=== PATIENT | male | born 1980 | race Caucasian/White ===

== ENCOUNTER 2020-06-01 17:57 | Emergency (ER) | payer BC, OTHER ==
[~2020-06-01] VITALS: Ht 193 cm; Wt 102.1 kg
[~2020-06-01 17:57] MED LIST: PROXICAM PO; QSYMIA
[2020-06-01] MEDS ORDERED: KETOROLAC TROMETHAMINE 60 MG/2 ML VIAL IM ONE (18:30)
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
[2020-06-01] MEDS ORDERED: KETOROLAC TROMETHAMINE 60 MG/2 ML VIAL ONE (18:39)
[2020-06-01] MEDS ORDERED: CYCLOBENZAPRINE10 MG PO (18:57)
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
--- NOTE | 2020-06-01 19:37 | Diagnostic Imaging Report ---
PELVIS 1-2 VIEW - HOPD - 1 view HISTORY: Pain COMPARISON: None available. FINDINGS: Bones: No acute displaced fracture. Osseous alignment is within normal limits. Joints: The joint spaces are well-maintained. Soft tissues: The soft tissues appear unremarkable. IMPRESSION: No acute radiographic abnormality. Signed by: Dr. Jama Lockwood MD on 06/01/2020 7:33 PM
--- NOTE | 2020-06-01 19:39 | Diagnostic Imaging Report ---
Lumbar Spine Radiographs: 3 views HISTORY: Pain COMPARISON: None available. DISCUSSION: Some of the osseous structures are partially obscured by stool and bowel gas. There are five non-rib bearing lumbar vertebral bodies. The alignment of the spine is within normal limits. No displaced fracture or compression deformity is identified. Vertebral body heights are maintained. Sacralization of L5. IMPRESSION: No acute radiographic abnormality. Signed by: Dr. Jama Lockwood MD on 06/01/2020 7:36 PM
--- NOTE | 2020-06-01 19:40 | Diagnostic Imaging Report ---
KNEE 3VW RT - HOPD - 3 views HISTORY: Pain COMPARISON: None available. FINDINGS: Bones: No acute displaced fracture. Osseous alignment is within normal limits. Joints: The joint spaces are well-maintained. Soft tissues: The soft tissues appear unremarkable. IMPRESSION: No acute radiographic abnormality. Signed by: Dr. Jama Lokcwood MD on 06/01/2020 7:37 PM
--- NOTE | 2020-06-01 19:41 | Diagnostic Imaging Report ---
KNEE 3VW LT - HOPD - 3 views HISTORY: Pain COMPARISON: None available. FINDINGS: Bones: No acute displaced fracture. Osseous alignment is within normal limits. Joints: The joint spaces are well-maintained. Soft tissues: The soft tissues appear unremarkable. IMPRESSION: No acute radiographic abnormality. Signed by: Dr. Jama Lockwood MD on 06/01/2020 7:38 PM
--- NOTE | 2020-06-01 19:43 | Diagnostic Imaging Report ---
FOOT 3 VIEW RT - HOPD - 3 views HISTORY: Pain COMPARISON: None available. FINDINGS: Bones: No acute displaced fracture. Osseous alignment is within normal limits. Joints: The joint spaces are well-maintained. Soft tissues: The soft tissues appear unremarkable. IMPRESSION: No acute radiographic abnormality. Signed by: Dr. Jama Lockwood MD on 06/01/2020 7:40 PM
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
== END 2020-06-01 19:56 | disposition home or self-care (01) ==
LOC: FSED 18:10
DX: M54.5 Low back pain (principal); M25.562 Pain in left knee; M25.561 Pain in right knee; S90.31XA Contusion of right foot, initial encounter; M79.671 Pain in right foot; V43.52XA Car driver injured in collision with other type car in traffic accident, initial encounter; Y92.488 Other paved roadways as the place of occurrence of the external cause; E11.9 Type 2 diabetes mellitus without complications
CPT/HCPCS: 72100; 72170; 73562 ×2; 73630; 99283; J1885